=== PATIENT | female | born 1975 | race Caucasian/White ===

== ENCOUNTER 2020-05-10 10:17 | Emergency (ER) | payer OTHER ==
[~2020-05-10] VITALS: Ht 149.9 cm; Wt 64.9 kg
[~2020-05-10 10:17] MED LIST: BACTRIM DS TAB1 EAC1 PO; PROZAC10 MG PO; ULTRAM 50MG TAB50 MG PO
[2020-05-10] MEDS ORDERED: VITAMIN D (10:25)
[2020-05-10] MEDS ORDERED: GENTAK5 ML EA. EYE (10:57)
[2020-05-10 11:04] VITALS: BP 145/70
== END 2020-05-10 11:04 | disposition home or self-care (01) ==
LOC: M.ERS 10:17
DX: S05.02XA Injury of conjunctiva and corneal abrasion without foreign body, left eye, initial encounter (principal); H10.9 Unspecified conjunctivitis; X58.XXXA Exposure to other specified factors, initial encounter; Y93.89 Activity, other specified; Y92.89 Other specified places as the place of occurrence of the external cause; Y99.8 Other external cause status